=== PATIENT | female | born 1990 | race Caucasian/White ===

== ENCOUNTER 2025-02-02 04:21 | Inpatient (IN) ==
[2025-02-02] MEDS ORDERED: IOPAMIDOL 100 ML BOTTLE IV ONE (04:22)
[2025-02-02] MEDS: ACETAMINOPHEN 1,000 MG/100 ML BAG IV ONE (04:36)
[2025-02-02] MEDS: 0.9 % SODIUM CHLORIDE 1,000 ML IV ONE (04:49)
[2025-02-02] MEDS: ONDANSETRON 4 MG/2 ML VIAL IV ONE ×3 (04:51→14:04)
[2025-02-02 04:52] LABS: Basophils # (Auto) 0.01 K/mcL (0.00-0.30); Basophils % (Auto) 0.1 % (0.0-2.0); Eosinophils # (Auto) 0.05 K/mcL (0.00-0.70); Eosinophils % (Auto) 0.7 % (0.0-7.0); Hematocrit 42.4 % (34.1-44.9); Hemoglobin 14.7 g/dL (11.2-15.7); Lymphocytes # (Auto) 1.72 K/mcL (1.50-4.80); Lymphocytes % (Auto) 24.5 % (15.5-49.0); Mean Cell Volume 92.8 fL (80.0-100.0); Mean Corpuscular HGB Conc 34.7 g/dL (31.0-36.0); Mean Platelet Volume 9.3 fL (8.8-12.5); Monocytes # (Auto) 0.49 K/mcL (0.10-0.90); Neutrophils % (Auto) 67.6 % (38.0-78.0); Platelet Count 178 K/mcL (140-440); RBC 4.57 M/mcL (3.59-5.38)
[2025-02-02 05:09] LABS: proBNP < 36.0 pg/mL (<125.0)
[2025-02-02 05:12] LABS: ALT/SGPT 23 U/L (<40); AST/SGOT 20 U/L (<32); Albumin 4.2 gm/dL (3.2-5.2); Albumin/Globulin Ratio 1.6 (1.0-2.3); Alkaline Phosphatase 105 U/L (39-117); Bilirubin,Total 0.4 mg/dL (0.1-1.0); Blood Urea Nitrogen 13 mg/dL (6-20); Calcium 9.1 mg/dL (8.6-10.4); Carbon Dioxide 22 mmol/L (22-30); Chloride 101 mmol/L (96-108); Globulin 2.7 gm/dL (2.2-3.7); Glomerular Filtration Rate 118; Glucose 105 mg/dL (70-105); Sodium 138 mmol/L (133-145)
[2025-02-02] MEDS: ENOXAPARIN 80 MG/0.8 ML SYRINGE SQ ONE (05:45)
[2025-02-02] MEDS: fentaNYL 100 MCG/2 ML VIAL IV ONE (06:28)
[2025-02-02] MEDS: morphine 4 MG/ML VIAL IV ONE ×3 (06:55→12:51)
[2025-02-02 06:57] LABS: Appearance,Urine Clear (Clear); Bilirubin,Urine Negative (Negative); Color,Urine Yellow; Glucose,Urine (UA) Negative (Negative); Ketones,Urine Negative (Negative); Leukocyte Esterase,Urine Negative /uL (Negative); Nitrate,Urine Negative (Negative); Protein,Urine Negative (Negative); Urine Blood Negative ery/mcL (Negative); Urobilinogen,Urine Normal
[2025-02-02 07:34] LABS: INR 0.9 (0.9-1.1); Prothrombin Time 12.4 sec (11.9-14.5)
[2025-02-02 07:35] LABS: Partial Thromboplastin Time 26.7 sec (20.0-37.0)
[2025-02-02] MEDS: HYDROmorphone 1 MG/ML SYRINGE IV ONE (08:05)
[2025-02-02] MEDS: KETOROLAC 30 MG/ML VIAL IV ONE (14:57)
[2025-02-02] MEDS ORDERED: METOCLOPRAMIDE 10 MG/2 ML VIAL IV PRN (15:26)
[2025-02-02] MEDS ORDERED: IPRATROPIUM/ALBUTEROL 3 ML AMPUL.NEB NEB PRN (15:26)
[2025-02-02] MEDS ORDERED: MAGNESIUM SULFATE 2 GM/50 ML BAG IV PRN (15:26)
[2025-02-02] MEDS ORDERED: HYDROcodone/APAP 5/325MG TABLET PO PRN (15:26)
[2025-02-02] MEDS ORDERED: morphine 4 MG/ML VIAL IV PRN (15:26)
[2025-02-02] MEDS ORDERED: SENNOSIDES 1 TABLET PO PRN (15:26)
[2025-02-02] MEDS ORDERED: POTASSIUM CHLORIDE 40 MEQ in DEXTROSE 5% IN WATER 500 ML IV PRN (15:26)
[2025-02-02] MEDS ORDERED: ONDANSETRON 4 MG/2 ML VIAL IV PRN (15:26)
[2025-02-02] MEDS ORDERED: POTASSIUM CHLORIDE 20 MEQ TABLET PO PRN ×2 (15:26)
[2025-02-02] MEDS ORDERED: PROMETHAZINE 25 MG TABLET PO PRN (15:26)
[2025-02-02] MEDS ORDERED: POLYETHYLENE GLYCOL 3350 17 GM PACKET PO PRN (15:26)
[2025-02-02] MEDS: ACETAMINOPHEN 325 MG TABLET PO SCH (15:37)
[2025-02-02] MEDS: ACETAMINOPHEN 160 MG/5 ML ORAL.SOL PO SCH (17:25)
[2025-02-02] MEDS: DOCUSATE SODIUM 100 MG CAPSULE PO SCH (21:26)
[2025-02-02] MEDS: ENOXAPARIN 80 MG/0.8 ML SYRINGE SQ SCH (21:27)
[2025-02-03 06:27] LABS: ALT/SGPT 23 U/L (<40); AST/SGOT 17 U/L (<32); Albumin 3.5 gm/dL (3.2-5.2); Albumin/Globulin Ratio 1.5 (1.0-2.3); Alkaline Phosphatase 94 U/L (39-117); Bilirubin,Direct < 0.2 mg/dL (0-0.3); Bilirubin,Total 0.3 mg/dL (0.1-1.0); Blood Urea Nitrogen 12 mg/dL (6-20); Calcium 8.7 mg/dL (8.6-10.4); Carbon Dioxide 25 mmol/L (22-30); Chloride 105 mmol/L (96-108); Globulin 2.4 gm/dL (2.2-3.7); Glomerular Filtration Rate 125; Glucose 103 mg/dL (70-105); Lactate Dehydrogenase 177 U/L (135-225); Phosphorous 3.1 mg/dL (2.5-4.5); Potassium 3.8 mmol/L (3.3-5.1); Sodium 140 mmol/L (133-145); Triglycerides 330 mg/dL (<150); Uric Acid 2.9 mg/dL (2.5-8.0)
[2025-02-03 07:39] VITALS: TEMP 98.2; O2SAT 98
[2025-02-03] MEDS: ESCITALOPRAM 20 MG TABLET PO SCH (09:07)
[2025-02-03] MEDS: WARFARIN 5 MG TABLET PO SCH (12:33)
[2025-02-04] MEDS ORDERED: ACETAMINOPHEN 325 MG TABLET PO PRN (04:00)
== END 2025-02-03 11:58 | disposition home or self-care (01) | DRG 175 ==
LOC: ED 04:21 → MEDSUR 15:25
PROVIDERS: ADMIT Internal Medicine; ATTEND Internal Medicine